=== PATIENT | male | born 1990 | race Caucasian/White ===

== ENCOUNTER 2021-01-20 03:02 | Emergency (ER) | payer OTHER ==
[2021-01-20] MEDS ORDERED: LODINE CAP 300300 MG PO (05:27)
[2021-01-20] MEDS ORDERED: BACTRIM DS TAB1 EACH PO (05:27)
[2021-01-20] MEDS ORDERED: CEPHALEXIN500 MG PO (05:27)
== END 2021-01-20 05:38 | disposition home or self-care (01) ==
LOC: ER1 03:02
DX: H60.13 Cellulitis of external ear, bilateral (principal); F17.210 Nicotine dependence, cigarettes, uncomplicated
CPT/HCPCS: 99282